=== PATIENT | female | born 1960 | race Caucasian/White ===

== ENCOUNTER 2017-10-02 05:40 | Day surgery (SDC) | payer MEDICAID ==
[~2017-10-02] VITALS: Ht 149.9 cm; Wt 48.1 kg
--- NOTE | ~2017-10-02 | OP ---
PATIENT NAME: ISMAEL CORNELL MEDICAL RECORD: [id number] :56 [facility] [place] ADMISSION DATE: SURGEON: FAITH SALMERON MD DATE OF OPERATION: 10/02/2017 REFERRING PHYSICIAN: Dr. Wilson of [place]. PREOPERATIVE DIAGNOSES: 1. Bilateral bloody nipple discharge with chronic recurring subareolar breast abscesses. 2. Tobacco addiction with continued cigarette smoking. POSTOPERATIVE DIAGNOSES: 1. Bilateral bloody nipple discharge with chronic recurring subareolar breast abscesses. 2. Tobacco addiction with continued cigarette smoking. OPERATION PERFORMED: Bilateral central partial mastectomy including all subareolar tissue. SURGEON: Faith Salmeron MD ANESTHESIA: General by LMA per [employer] PREOPERATIVE NOTE: Ms. Cornell is a 57-year-old white female patient referred by Dr. Wilson. She has a long history of recurring subareolar breast abscesses and is once again having bloody nipple discharge without any definite suspicious lesions seen on mammography. She has been told in the past that the illnesses caused by and would be relieved by stopping smoking. She continues to be a heavy cigarette smoker. She is brought to the operating room at this time to do bilateral subareolar breast excision. The patient was placed in supine position, prepped and draped in sterile manner. The left breast was approached first. A medial periareolar incision was made in old scar and the areola with all of the subareolar ducts were taken down from the undersurface of the areola nipple with sharp and electrocautery dissection. After that, the breast tissue was removed as a core or disc of tissue, which actually did go down to the chest wall in one small area. Hemostasis was obtained with electrocautery. The wound was irrigated with saline and packed with dry gauze. The specimen was inspected and I saw no definite suspicious lesions. I also saw no abscesses or obstructed ducts. There was no old blood or pus. I saw no papillomas grossly. The specimen was sent in its entirety for permanent section histology. The wound was closed with very few 3-0 Vicryl sutures and then running intracuticular 4-0 Monocryl and Dermabond glue. It was dressed with Maxorb Ag and Tegaderm. The right side was then approached in the exact same manner. She had had a previous biopsy on that side as well and that old scar extended more than 180 degrees around the areola. I limited my incision to the medial 180 degrees of the margin, and as on the left side, I removed all of the tissue from the undersurface of the nipple and areola and a disc of underlying breast tissue down to the chest wall. The specimen was examined and no specific lesions were seen other than a couple of very small cysts. This tissue also was sent in pathology for permanent section study labeled right breast. That wound also was irrigated with saline and both breasts were infiltrated with 0.25% Marcaine OPERATIVE REPORT [id number] ISMAEL CORNELL without epinephrine. The wound was closed with Vicryl and Monocryl, and dressed with Maxorb and Tegaderm. The patient was placed in a snug compression wrap, awakened from her anesthetic, and taken to the recovery room. Blood loss was 5-10 cc, none was replaced. All sponges, instruments, and needles were accounted for. No drain was used and 2 surgical specimens were sent for permanent section histology. The patient will be discharged to home today and will have an appointment to return to see me in my office in about 48 hours, i.e., of this week. She is given a prescription for [place] 5 #25. She can take one or if necessary two p.o. q. 4 hours p.r.n. pain. TRANSINT:[id number] Voice Confirmation ID: [id number] DOCUMENT ID: [id number] FATIH SALMERON MD at 1054 CC: BETITO WILSON MD [id number] DICTATION DATE: 10/02/17 1034 [employer] ORIGINATOR: 10/02/17 1234 [facility] 10/02/17 [id number] [place] [address]
[~2017-10-02 05:40] MED LIST: BENADRYL25 MG PO; NEURONTIN 300300 MG PO; PAXIL20 MG PO; TOPROL XL100 MG; VICODIN PO
[2017-10-02 06:04] LABS: BASOPHILS 0.5 % (0-2); EOSINOPHILS 11.4 % (0-7); HEMATOCRIT 39.4 % (36.0-48.0); HEMOGLOBIN 13.5 g/dL (12-16); IMMATURE GRANULOCYTES 0.2 % (0-5); LYMPHOCYTES 41.8 % (15-50); MCH 30.3 pg (26.0-34.0); MCHC 34.3 g/dL (31.0-37.0); MCV 88.3 fL (80.0-100.0); MEAN PLATELET VOLUME 9.8 fL (7.4-10.4); MONOCYTES 6.2 % (2-11); NEUTROPHILS 39.9 % (40-80); PLATELET COUNT 244 10x3/uL (130-400); RBC 4.46 10x6/uL (4.00-5.40); RDW 14.1 % (11.5-14.5); WBC 8.2 10x3/uL (4.8-10.8)
[2017-10-02 06:15] LABS: CALC OSMOLALITY 281 mosm/kg (275-300); CALCIUM 9.1 mg/dL (8.5-10.1); CHLORIDE - SERUM 106 mmol/L (98-107); CREATININE - SERUM 0.8 mg/dL (0.6-1.3); GLUCOSE 113 mg/dL (74-106); POTASSIUM - SERUM 4.3 mmol/L (3.5-5.1); SODIUM 141 mmol/L (136-145); UREA NITROGEN 12 mg/dL (7-18); eGFR NON AFRICAN AMERICAN 78 mL/min (90-120)
[2017-10-02 06:23] LABS: APTT 26.5 SECONDS (22.8-39.4); INR 1.01 (0.85-1.17)
[2017-10-02 07:48] VITALS: BP 167/71; Ht 149.9 cm; Wt 48.1 kg
== END 2017-10-02 12:30 | disposition home or self-care (01) ==
LOC: D.OPS 05:40
PROVIDERS: Surgery
DX: N60.22 Fibroadenosis of left breast (principal); N60.42 Mammary duct ectasia of left breast; N60.41 Mammary duct ectasia of right breast; F17.210 Nicotine dependence, cigarettes, uncomplicated; Z01.812 Encounter for preprocedural laboratory examination